=== PATIENT | female | born 1965 | race Caucasian/White ===

== ENCOUNTER 2025-01-13 17:29 | Emergency (ER) | payer BC, SELFPAY ==
[2025-01-13 17:31] VITALS: BMI 19.5
[2025-01-13 17:45] VITALS: BP 124/78; PULSE 107; RESP 17; TEMP 36.8; O2SAT 96
--- NOTE | 2025-01-13 17:52 | XR_ITS ---
Examination: Hand, right 3 views Technique: Hand AP, oblique, lateral 3 views Date and time of exam: January 13, 2025 1802 hours INDICATIONS: Injury to the hand today, hand pain FINDINGS: No acute fracture. No evidence of location No foreign body IMPRESSION: No acute fracture
--- NOTE | 2025-01-13 17:52 | XR_ITS ---
Examination: Wrist, right 3 views Technique: Wrist AP, oblique, lateral 3 views Date and time of exam: January 13, 2025 1802 hours INDICATIONS: Injury to the wrist today, wrist pain. FINDINGS: No acute fracture No dislocation No foreign body IMPRESSION: No acute fracture
--- NOTE | 2025-01-13 17:53 | PD.EDRME ---
Rapid Medical Screening Exam [facility] Arrival date/time: 01/13/25 17:29 59-year-old female with no known medical history presents to the emergency room with multiple complaints. Patient's first complaint is tenderness and pain to her right wrist after a ground-level fall that occurred 3 days ago. Patient second complaint is of dysuria. I have greeted and performed a focused initial assessment of this patient. A comprehensive ED assessment and evaluation of the patient, analysis of all test results, and completion of the medical decision making process will be conducted by additional ED providers. Chief Complaint: Fall Vital signs: Vital Signs Temperature 98.3 F 01/13/25 17:45 Pulse Rate 107 H 01/13/25 17:45 Respiratory Rate 17 01/13/25 17:45 Blood Pressure 124/78 01/13/25 17:45 Pulse Oximetry (%) 96 01/13/25 17:45 Oxygen Delivery Method Room Air 01/13/25 17:45 Vital signs reviewed by provider: Yes
[2025-01-13 18:46] LABS: Collection Type, Urine Clean Catch
[2025-01-13 18:56] LABS: Bilirubin,Urine Negative (Negative); Blood,Urine Negative (Negative); Clarity,Urine Clear (Clear/Hazy); Color,Urine Yellow (Lt Yel-Yel); Culture Indicated,Urine Not Indicated; Glucose, Urine Negative (Negative); Hyaline Casts,Urine < 1 /hpf (0-1); Ketones,Urine Negative (Negative); Leukocyte Esterase,Urine Negative (Negative); Nitrite,Urine Negative (Negative); PH,Urine 5.5 (5.0-7.0); Protein,Urine Negative (Neg - Trace); RBC,Urine 4 /hpf (0-3); Specific Gravity,Urine 1.032 (1.001-1.035); Squamous Epithelial Cell,Urine 2 /hpf (0-5); Urobilinogen,Urine Negative mg/dL (0.0-1.0); WBC,Urine 1 /hpf (0-5)
--- NOTE | 2025-01-13 21:16 | EDNOTE_ITS ---
ED Fall Injury RME/HPI General Chief Complaint: Fall Stated Complaint: FELL; PAIN R)WRIST/THUMB,KNEES,L) ANKLE, BACK Time Seen by Provider: 01/13/25 18:56 Arrival date/time: 01/13/25 17:29 This is a case of 59-year-old female who came into the emergency room due to fall incident history of present illness started 2 days prior to arrival in the emergency room and the patient was walking tripped and fell and landed on his right hand and right wrist patient denies any loss of consciousness denies any head neck chest or abdominal injury due to pain and swelling thus patient decided to sought consult here in the emergency room patient is also complaining of painful urination urgency and increased frequency for 2 days no abdominal pain no back pain no fever no chills no nausea no vomiting RME / HPI RME / HPI Narrative: 01/13/25 17:29 59-year-old female with no known medical history presents to the emergency room with multiple complaints. Patient's first complaint is tenderness and pain to her right wrist after a ground-level fall that occurred 3 days ago. Patient second complaint is of dysuria. I have greeted and performed a focused initial assessment of this patient. A comprehensive ED assessment and evaluation of the patient, analysis of all test results, and completion of the medical decision making process will be conducted by additional ED providers. Related Data Previous Rx's ?Medication ?Instructions ?Recorded meloxicam 7.5 mg tablet 7.5 mg PO QDAY #10 tabs 04/28 07/20 ibuprofen 600 mg tablet 600 mg PO TID PRN pain #14 t abs 06/23/22 cephalexin 500 mg capsule 500 mg PO QID 10 days #40 ca ps 01/13/25 phenazopyridine 200 mg tablet 200 mg PO TID pain 3 day s #9 tabs 01/13/25 (Pyridium) tramadol 50 mg tablet 50 mg PO Q8H PRN pain #10 ta bs 01/13/25 Allergies Allergy/AdvReac Type Severity Reaction Status Date / Time erythromycin base Allergy Intermediate Rash Verified 01/13/25 17:33 sulfamethoxazole Allergy Intermediate Rash Verified 01/13/25 17:33 Course Orders Category Date Time Status Splint / Immobilizer STAT Care 01/13/25 21:09 Active XR hand comp RT min 3V Stat Exams 01/13/25 17:52 Completed XR wrist comp RT min 3V Stat Exams 01/13/25 17:52 Completed UA, C/S IF [Urinalysis, C/S if Indicated] Stat Lab 01/13/25 18:30 Completed HYDROcodone*/APAP 5/325 [[place] 5/325] Med 01/13/25 21:09 Once 1 tab PO X1 ONE Vital Signs Vital signs: Vital Signs Temperature 98.3 F 01/13/25 17:45 Pulse Rate 107 H 01/13/25 17:45 Respiratory Rate 17 01/13/25 17:45 Blood Pressure 124/78 01/13/25 17:45 Pulse Oximetry (%) 96 01/13/25 17:45 Oxygen Delivery Method Room Air 01/13/25 17:45 Fall Medications / Prescriptions Medication administrations:: Medication Administration History Hydrocodone Bitart/Acetaminophen (Hydrocodone/Apap 5/325 Tablet) 1 tab PO X1 ONE Stop: 01/13/25 21:10 Discharge Plan Plan Patient Disposition: HOME (Self Care) Patient condition on transfer: Stable Prescriptions/Referrals Prescriptions/Med Rec: New tramadol 50 mg tablet 50 mg PO Q8H MDD max 4 tabs per day PRN (Reason: pain) Qty: 10 0RF cephalexin 500 mg capsule 500 mg PO QID 10 Days Qty: 40 0RF phenazopyridine [Pyridium] 200 mg tablet 200 mg PO TID 3 Days Qty: 9 0RF No Action meloxicam 7.5 mg tablet 7.5 mg PO QDAY Qty: 10 0RF ibuprofen 600 mg tablet 600 mg PO TID PRN (Reason: pain) Qty: 14 0RF Referrals: No Primary/Family,Physician [Primary Care Provider] - In 1 week Problem List Clinical Impression: Fall, Dysuria, Urinary tract infection, Sprain of right wrist, Sprain of hand, right Patient/Caregiver Discharge Instructions Education Materials: Dysuria, Urinary Tract Infections in Women, Understanding a Wrist Sprain, ED Fall with Uncertain Cause, ED Hand Sprain, ED RICE Additional Instructions: Follow-up with your primary care physician in 2 days for reevaluation for any worsening symptoms or any emergent concern call 911 or go to the nearest emergency room take your medication as directed finish the course of antibiotic increase water intake keep hydrated ice pack every 2 hours for 20 minutes for 24 hours then alternate with warm compress elevate to decrease swelling keep the splint in place until cleared by your primary care physician Print Language: [place] Stand Alone Forms: [facility]yah Award Info., Patient Portal Info Letter PA/SPOOL MAKER Supervising Physician PA/SPOOL MAKER Supervising Physician: Dr [email or web address]
[2025-01-13] MEDS: HYDROcodone/APAP 5/325 TABLET 1 TAB PO (21:51)
[2025-01-13 22:17] VITALS: BP 121/67; PULSE 99; RESP 18; TEMP 36.7; O2SAT 99
== END 2025-01-13 22:20 | disposition home or self-care (01) ==
PROVIDERS: Nurse Practitioner Family; Emergency Provider Emergency Medicine
DX: N39.0 Urinary tract infection, site not specified (principal); S63.501A Unspecified sprain of right wrist, initial encounter; W01.0XXA Fall on same level from slipping, tripping and stumbling without subsequent striking against object, initial encounter; Y93.01 Activity, walking, marching and hiking
CPT/HCPCS: 73110; 73130; 81001; 99283; A9270